=== PATIENT | male | born 1990 | race Caucasian/White ===

== ENCOUNTER 2019-10-27 03:07 | Emergency (ER) | payer OTHER ==
[2019-10-27 03:13] VITALS: RESP 18
[2019-10-27] MEDS ORDERED: DIPH,PERTUS(ACELL)TETVAC-LF 0.5 ML VIAL IM ONE (03:20)
[2019-10-27] MEDS ORDERED: LIDOCAINE 1% INJ 10MG/ML (20 ML MDV) SQ ONE (03:20)
[2019-10-27] MEDS ORDERED: ceFAZolin 1,000 MG VIAL (IM USE) IM STA (03:21)
--- NOTE | 2019-10-27 03:29 | ED ---
General Adult HPI - General Chief complaint: Extremity Injury, Lower Stated complaint: Hand Injury, [facility] Time Seen by Provider: 10/27/19 03:15 Source: patient, RN notes reviewed Mode of arrival: ambulatory Limitations: no limitations - History of Present Illness Initial comments: 29-year-old male presents to the emergency department for a chief complaint of left fifth digit injury. Patient states he was at work using a pressing machine. 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 States that the machine was not aligned and it was accidentally activated. States that it hit his left fourth and fifth digits. States that he has a deep laceration of the left fifth digit. Patient has no other complaints at this time including shortness of breath, chest pain, abdominal pain, nausea or vomiting, headache, or visual changes. - Related Data Previous Rx's Medication Instructions Recorded Cephalexin [Keflex] 500 mg PO Q6HR 7 Days #28 cap 10/27/19 Allergies Allergy/AdvReac Type Severity Reaction Status Date / Time No Known Allergies Allergy Verified 10/27/19 03:13 Review of Systems ROS Statement: Those systems with pertinent positive or pertinent negative responses have been documented in the HPI. ROS Other: All systems not noted in ROS Statement are negative. Past Medical History Past Medical History: Musculoskeletal Disorder History of Any Multi-Drug Resistant Organisms: None Reported Additional Past Surgical History / Comment(s): left breast mass removed Past Anesthesia/Blood Transfusion Reactions: No Reported Reaction Past Psychological History: No Psychological Hx Reported Smoking Status: Never smoker Past Alcohol Use History: None Reported Past Drug Use History: Marijuana - Past Family History Father Family Medical History: Cancer General Exam - General Exam Comments Initial Comments: Left fourth digit: Patient has a superficial laceration noted over the dorsum of the middle phalanx of the left fourth finger as well as the palmar aspect. Full range of motion of the left fourth finger. There is some mild edema present however compartments are soft. Left fifth digit: Patient has a deep laceration over the fifth DIP joint, dorsal aspect. Capillary refill less than 2 seconds in the distal aspect of the finger. sensation intact in distal aspect. i do not see foreign body evident. The hand is otherwise unremarkable. Limitations: no limitations General appearance: alert, in no apparent distress, anxious Head exam: Present: atraumatic, normocephalic, normal inspection Eye exam: Present: normal appearance, PERRL, EOMI. Absent: scleral icterus, conjunctival injection, periorbital swelling ENT exam: Present: normal exam, mucous membranes moist Neck exam: Present: normal inspection. Absent: tenderness, meningismus, lymphadenopathy Respiratory exam: Present: normal lung sounds bilaterally. Absent: respiratory distress, wheezes, rales, rhonchi, stridor Cardiovascular Exam: Present: regular rate, normal rhythm, normal heart sounds. Absent: systolic murmur, diastolic murmur, rubs, gallop, clicks Course Vital Signs 10/27/19 03:11 Temperature 98.1 F Pulse Rate 98 Respiratory 18 Rate Blood Pressure 149/83 O2 Sat by Pulse 98 Oximetry Procedures - Laceration Laceration #1 Consent Obtained: verbal consent Indication: laceration Site: hand (5th digit) Description: linear Depth: involves muscle layer, involves tendon Anesthetic Used: lidocaine 1% Anesthesia Technique: nerve block Amount (mls): 6 Pre-repair: wound explored, irrigated extensively (With 2 L sterile water followed by saline pressure irrigation) Type of Sutures: nylon Size of Sutures: 5-0 Number of Sutures: 4 Technique: simple, interrupted Patient Tolerated Procedure: well, no complications Medical Decision Making - Medical Decision Making X-ray of the left hand shows a fracture of the distal phalanx little finger left hand. There is no significant displacement. Patient does have overlying laceration making this consistent with open fracture. Therefore patient was treated with IM Ancef. Tetanus was updated. Wound was irrigated thoroughly with 2 L of sterile water as well as saline pressure irrigation. Wound was then repaired with 4 simple interrupted sutures. Capillary refill is less than 2 seconds. At this time this was status is intact although patient does have some numbness in this part of the finger. He is otherwise able to flex and extend the MCP and PIP joints. Patient does have some edema of the fourth digit as well however lacerations are superficial and x-ray does not show fracture. Patient was placed in a finger splint. Patient will be prescribed Keflex outpatient. He will follow up with orthopedics. He will return here if he has any worsening symptoms. Disposition Clinical Impression: Laceration, Finger fracture, left Disposition: HOME SELF-CARE Condition: Good Instructions (If sedation given, give patient instructions): Laceration (ED), Care For Your Stitches (ED), Finger Fracture (ED) Additional Instructions: Please wear splint. Please monitor for signs of infection such as spreading or streaking redness, drainage, or fever and return immediately if these occur. Return if you have any other worsening symptoms. Take Motrin for pain. If pain is severe take Tylenol 3. Do not drive or operate machinery while taking Tylenol 3. Take Keflex as directed. This was prescribed to [facility] on [address]. Follow up with orthopedics by calling tomorrow to make an appointment. Prescriptions: Cephalexin [Keflex] 500 mg PO Q6HR 7 Days #28 cap Is patient prescribed a controlled substance at d/c from ED?: No Referrals: Toñito Nelson MD [Primary Care Provider] - 1-2 days Time of Disposition: 04:11
[2019-10-27] MEDS ORDERED: ACETAMINOPHEN TAB 325 MG TAB PO STA (03:31)
--- NOTE | 2019-10-27 03:39 | XR ---
EXAMINATION TYPE: XR hand complete LT DATE OF EXAM: 10/27/2019 COMPARISON: NONE HISTORY: Pain. Trauma. TECHNIQUE: 3 views FINDINGS: There is nondisplaced comminuted fracture of the distal phalanx of the little finger left h and. There is no significant displacement. IMPRESSION: Fracture distal phalanx little finger left hand.
[2019-10-27 04:34] VITALS: BP 145/79; PULSE 75; TEMP 98
== END 2019-10-27 04:34 | disposition home or self-care (01) ==
LOC: EC 03:07
DX: S62.667A Nondisplaced fracture of distal phalanx of left little finger, initial encounter for closed fracture (principal); S61.217A Laceration without foreign body of left little finger without damage to nail, initial encounter; Z23 Encounter for immunization; W31.89XA Contact with other specified machinery, initial encounter; Y93.89 Activity, other specified; Y92.69 Other specified industrial and construction area as the place of occurrence of the external cause; Y99.0 Civilian activity done for income or pay
CPT/HCPCS: 73130; 90715; 96372; 90471; 12042; 99283; J0690; J2001

== ENCOUNTER → 2019-12-03 | Outpatient (CLI) | payer BC ==
--- NOTE | 2019-12-03 19:02 | CT ---
EXAMINATION TYPE: CT angio chest with contrast and with 3-D reconstruction renderings DATE OF EXAM: 12/03/2019 6:09 PM COMPARISON: None HISTORY: Chest pain and pressure. Pt hx marijuana/marijuana vaping CT DLP: 258 mGycm Automated exposure control for dose reduction was used. CONTRAST: CTA scan of the thorax is performed with IV Contrast, patient injected with 100 mL of Isovu e 370, pulmonary embolism protocol. Three-D reconstructions. FINDINGS: The airways are unremarkable. The lungs are clear and well-expanded. The pleural spaces are negative. There is satisfactory enhancement of the pulmonary artery and its branches, with no CT evidence for p ulmonary embolism. There are no acute aortic findings. There is no pericardial effusion, and no cardiomegaly. However, there is evidence suggesting left coronary artery calcifications. There is cardiac motion ar tifact obscuring detail. No mediastinal and hilar adenopathy. OTHER: No additional significant abnormality is seen. IMPRESSION: 1. NEGATIVE FOR PULMONARY EMBOLISM OR OTHER DEFINITE ACUTE PROCESS. 2. EVIDENCE OF LEFT CORONARY ARTERY CALCIFICATIONS.
== END | disposition home or self-care (01) ==
LOC: RADCTMAIN 17:07
PROVIDERS: ATTEND Family Medicine
DX: I25.10 Atherosclerotic heart disease of native coronary artery without angina pectoris (principal)
CPT/HCPCS: 71275; Q9967

== ENCOUNTER → 2019-12-03 | Outpatient (CLI) | payer BC ==
--- NOTE | 2019-12-03 15:46 | XR ---
EXAMINATION TYPE: XR chest 2V DATE OF EXAM: 12/03/2019 COMPARISON: NONE HISTORY: Chest pain TECHNIQUE: Frontal and lateral views of the chest are obtained. FINDINGS: There is no focal air space opacity. No evidence for pneumothorax. No pleural effusion. The cardiac silhouette size is within normal limits. The osseous structures are grossly intact. IMPRESSION: 1. No acute cardiopulmonary process.
== END | disposition home or self-care (01) ==
LOC: RADXRMAIN 15:25
PROVIDERS: ATTEND Family Medicine
DX: R07.9 Chest pain, unspecified (principal)
CPT/HCPCS: 71046

== ENCOUNTER → 2023-01-24 | Outpatient (CLI) | payer OTHER ==
--- NOTE | 2023-01-24 10:18 | XR ---
EXAMINATION TYPE: XR chest 2V DATE OF EXAM: 01/24/2023 COMPARISON: CTA chest and chest x-ray December 03, 2019 HISTORY: Chest pain for one month. TECHNIQUE: Frontal and lateral views of the chest are obtained. FINDINGS: There is no focal air space opacity, pleural effusion, or pneumothorax seen. The cardiac silhouette size is within normal limits. The osseous structures are intact. IMPRESSION: No acute cardiopulmonary process. No significant change from prior.
--- NOTE | 2023-01-24 10:19 | XR ---
EXAMINATION TYPE: XR abdomen 2V DATE OF EXAM: 01/24/2023 CLINICAL HISTORY: Abdominal pain for years worsening over last few months TECHNIQUE: Supine and upright views of the abdomen are obtained. COMPARISON: None. FINDINGS: Gas is seen in nondistended stomach. Scattered gas is seen in non-distended small and larg e bowel loops. There is no visceromegaly, pneumoperitoneum, or abnormal calcification appreciated. The lung bases are clear and the osseous structures are intact. IMPRESSION: Overall nonobstructive bowel gas pattern.
== END | disposition home or self-care (01) ==
LOC: RADXRMAIN 09:38
PROVIDERS: ATTEND Family Medicine
DX: R05.3 Chronic cough (principal); R10.84 Generalized abdominal pain
CPT/HCPCS: 71046; 74019

== ENCOUNTER → 2023-01-24 | Outpatient (CLI) | payer OTHER ==
--- NOTE | 2023-01-24 09:51 | USB ---
Reason for Exam: Clinical finding. Technique: Method: Targeted. Findings: The retroareolar of both breasts was scanned. A complete US of all four quadrants of the breast, axilla and retro-areolar region were reviewed. No solid or cystic masses are identified.A complete US of all four quadrants of the breast, axilla and retro-areolar region were reviewed. Gynecomastia changes noted on the left. No solid or cystic masses are identified. Overall Assessment: Benign, BI-RAD 2 Management: No follow up is required for this exam. Clinical management for patient's symptoms. A clinical breast exam by your physician is recommended on an annual basis and results should be correlated with mammographic findings. This exam should not preclude additional follow-up of suspicious palpable abnormalities. Results were given to the patient verbally at the time of exam. Electronically signed and approved by: Kwasi Vigil DO
== END | disposition home or self-care (01) ==
LOC: RADUSWWP 08:59
PROVIDERS: ATTEND Family Medicine
DX: N62 Hypertrophy of breast (principal)